=== PATIENT | female | born 1995 | race Caucasian/White ===

== ENCOUNTER 2017-03-07 19:49 | Emergency (ER) | payer BC ==
[2012-12-19 07:04] VITALS: BMI 32.1
== END 2017-03-07 21:10 | disposition home or self-care (01) ==
LOC: D.ER 19:49
DX: S69.91XA Unspecified injury of right wrist, hand and finger(s), initial encounter (principal); W22.8XXA Striking against or struck by other objects, initial encounter; Y93.89 Activity, other specified; Y92.89 Other specified places as the place of occurrence of the external cause; M25.40 Effusion, unspecified joint; M79.641 Pain in right hand; K21.9 Gastro-esophageal reflux disease without esophagitis; F90.9 Attention-deficit hyperactivity disorder, unspecified type

== ENCOUNTER 2017-07-22 09:07 | Emergency (ER) | payer BC | END 2017-07-22 11:25 | disposition home or self-care (01) | LOC: D.ER 09:07 | DX: J20.9 Acute bronchitis, unspecified (principal); K21.9 Gastro-esophageal reflux disease without esophagitis; F90.9 Attention-deficit hyperactivity disorder, unspecified type; F17.200 Nicotine dependence, unspecified, uncomplicated ==

== ENCOUNTER 2017-12-23 08:52 | Emergency (ER) | payer MEDICAID ==
[2012-12-19 07:04] VITALS: BMI 32.1
== END 2017-12-23 11:19 | disposition home or self-care (01) ==
LOC: D.ER 08:52
DX: H66.91 Otitis media, unspecified, right ear (principal); J11.1 Influenza due to unidentified influenza virus with other respiratory manifestations; R50.9 Fever, unspecified; J02.9 Acute pharyngitis, unspecified; H92.01 Otalgia, right ear; M79.1 Myalgia; F17.200 Nicotine dependence, unspecified, uncomplicated

== ENCOUNTER 2018-04-07 12:09 | Emergency (ER) | payer MEDICAID ==
[~2018-04-07] VITALS: Ht 162.6 cm; Wt 90.9 kg
[2018-04-07 12:12] VITALS: Ht 162.6 cm; Wt 90.9 kg
[2018-04-07 12:51] LABS: BASOPHILS 0.2 % (0-2); EOSINOPHILS 1.4 % (0-7); HEMATOCRIT 36.8 % (36.0-48.0); HEMOGLOBIN 12.9 g/dL (12-16); IMMATURE GRANULOCYTES 0.2 % (0-5); LYMPHOCYTES 37.1 % (15-50); MCH 31.2 pg (26.0-34.0); MCHC 35.1 g/dL (31.0-37.0); MCV 89.1 fL (80.0-100.0); MONOCYTES 5.5 % (2-11); NEUTROPHILS 55.6 % (40-80); PLATELET COUNT 201 10x3/uL (130-400); RBC 4.13 10x6/uL (4.00-5.40); RDW 12.6 % (11.5-14.5); WBC 5.8 10x3/uL (4.8-10.8)
[2018-04-07 13:03] LABS: APPEARANCE HAZY (CLEAR); BILIRUBIN NEGATIVE (NEGATIVE); COLOR YELLOW (YELLOW); GLUCOSE NEGATIVE (NEGATIVE); KETONE NEGATIVE (NEGATIVE); NITRITE NEGATIVE (NEGATIVE); PROTEIN NEGATIVE (NEGATIVE); SPECIFIC GRAVITY 1.005 (1.005-1.020); UROBILINOGEN NORMAL (NORMAL)
[2018-04-07 13:04] LABS: RED CELLS - URINE 0-5 /hpf (0-5)
[2018-04-07 13:05] LABS: AMORPHOUS SEDIMENT <1+ /lpf (NONE SEEN); BACTERIA MODERATE /hpf (NONE SEEN); EPITHELIAL CELLS 0-5 /hpf (0-5)
[2018-04-07 13:14] LABS: ALBUMIN 3.6 g/dL (3.4-5.0); ALKALINE PHOSPHATASE 67 U/L (46-116); ALT (SGPT) 46 U/L (10-68); CALC OSMOLALITY 281 mosm/kg (275-300); CALCIUM 8.7 mg/dL (8.5-10.1); CARBON DIOXIDE 27.4 mmol/L (21.0-32.0); CHLORIDE - SERUM 106 mmol/L (98-107); CREATININE - SERUM 0.8 mg/dL (0.6-1.3); POTASSIUM - SERUM 3.6 mmol/L (3.5-5.1); PROTEIN - SERUM 6.7 g/dL (6.4-8.2); SODIUM 141 mmol/L (136-145); UREA NITROGEN 7 mg/dL (7-18); eGFR NON AFRICAN AMERICAN > 90 mL/min (90-120)
[2018-04-07 13:18] LABS: GLUCOSE 148 mg/dL (74-106)
[2018-04-07 13:46] LABS: HCG - QUANTITATIVE (MATERNAL) 7178 mIU/mL
[2018-04-07] MEDS ORDERED: MACROBID100 MG PO ×2 (14:56→14:57)
[2018-04-07 15:35] LABS: HCG URINE POSITIVE (NEGATIVE)
[2018-04-07 15:43] VITALS: BP 128/80
== END 2018-04-07 15:42 | disposition home or self-care (01) ==
LOC: D.ER 12:09
PROVIDERS: Emergency Medicine
DX: O20.9 Hemorrhage in early pregnancy, unspecified (principal); Z3A.01 Less than 8 weeks gestation of pregnancy; N39.0 Urinary tract infection, site not specified; F17.200 Nicotine dependence, unspecified, uncomplicated; F12.90 Cannabis use, unspecified, uncomplicated

== ENCOUNTER 2018-04-22 13:05 | Emergency (ER) | payer MEDICAID ==
[~2018-04-22] VITALS: Ht 162.6 cm; Wt 96.8 kg
[~2018-04-22 13:05] MED LIST: MACROBID100 MG PO
[2018-04-22 13:38] VITALS: Ht 162.6 cm; Wt 96.8 kg
[2018-04-22 14:25] LABS: BASOPHILS 0.2 % (0-2); EOSINOPHILS 0.5 % (0-7); HEMOGLOBIN 13.9 g/dL (12-16); IMMATURE GRANULOCYTES 0.1 % (0-5); LYMPHOCYTES 32.1 % (15-50); MCH 31.2 pg (26.0-34.0); MCHC 35.6 g/dL (31.0-37.0); MCV 87.4 fL (80.0-100.0); MONOCYTES 5.6 % (2-11); NEUTROPHILS 61.5 % (40-80); RBC 4.46 10x6/uL (4.00-5.40); RDW 12.3 % (11.5-14.5); WBC 8.3 10x3/uL (4.8-10.8)
[2018-04-22 14:26] LABS: PLATELET COUNT 264 10x3/uL (130-400)
[2018-04-22 14:28] LABS: HCG SERUM POSITIVE (NEGATIVE)
[2018-04-22 14:36] LABS: APPEARANCE HAZY (CLEAR); COLOR RED/ORANGE (YELLOW); SPECIFIC GRAVITY 1.005 (1.005-1.020)
[2018-04-22 14:37] LABS: ALBUMIN 4.2 g/dL (3.4-5.0); ALKALINE PHOSPHATASE 70 U/L (46-116); ALT (SGPT) 51 U/L (10-68); BILIRUBIN - TOTAL 0.27 mg/dL (0.2-1.3); CALC OSMOLALITY 275 mosm/kg (275-300); CALCIUM 9.4 mg/dL (8.5-10.1); CARBON DIOXIDE 25.7 mmol/L (21.0-32.0); CHLORIDE - SERUM 102 mmol/L (98-107); CREATININE - SERUM 0.7 mg/dL (0.6-1.3); GLUCOSE 128 mg/dL (74-106); POTASSIUM - SERUM 3.7 mmol/L (3.5-5.1); PROTEIN - SERUM 7.8 g/dL (6.4-8.2); SODIUM 138 mmol/L (136-145); UREA NITROGEN 7 mg/dL (7-18); eGFR NON AFRICAN AMERICAN > 90 mL/min (90-120)
[2018-04-22 14:37] LABS: BACTERIA FEW /hpf (NONE SEEN); BILIRUBIN NEGATIVE (NEGATIVE); GLUCOSE NEGATIVE (NEGATIVE); KETONE NEGATIVE (NEGATIVE); NITRITE NEGATIVE (NEGATIVE); PROTEIN 1+ mg/dL (NEGATIVE); RED CELLS - URINE >50 /hpf (0-5); UROBILINOGEN NORMAL (NORMAL); WHITE CELLS - URINE OCC /hpf (0-5)
[2018-04-22 14:58] LABS: HCG - QUANTITATIVE (MATERNAL) 39053 mIU/mL
[2018-04-22 20:19] VITALS: BP 115/77
== END 2018-04-22 20:20 | disposition home or self-care (01) ==
LOC: D.ER 13:05
PROVIDERS: Emergency Medicine
DX: O20.0 Threatened abortion (principal); Z3A.09 9 weeks gestation of pregnancy

== ENCOUNTER 2019-03-04 14:02 | Emergency (ER) | payer SELFPAY ==
[~2019-03-04] VITALS: Ht 162.6 cm; Wt 106.8 kg
[2019-03-04 14:15] VITALS: Ht 162.6 cm; Wt 106.8 kg
[2019-03-04 14:48] LABS: BASOPHILS 0.3 % (0-2); EOSINOPHILS 1.1 % (0-7); HEMATOCRIT 40.9 % (36.0-48.0); HEMOGLOBIN 14.5 g/dL (12-16); IMMATURE GRANULOCYTES 0.3 % (0-5); LYMPHOCYTES 34.3 % (15-50); MCH 30.6 pg (26.0-34.0); MCHC 35.5 g/dL (31.0-37.0); MCV 86.3 fL (80.0-100.0); MEAN PLATELET VOLUME 9.9 fL (7.4-10.4); MONOCYTES 6.6 % (2-11); NEUTROPHILS 57.4 % (40-80); PLATELET COUNT 217 10x3/uL (130-400); RBC 4.74 10x6/uL (4.00-5.40); RDW 12.6 % (11.5-14.5)
[2019-03-04 15:10] LABS: ALBUMIN 3.6 g/dL (3.4-5.0); ALKALINE PHOSPHATASE 60 U/L (46-116); ALT (SGPT) 129 U/L (10-68); BILIRUBIN - TOTAL 0.33 mg/dL (0.2-1.3); CALC OSMOLALITY 275 mosm/kg (275-300); CALCIUM 8.5 mg/dL (8.5-10.1); CARBON DIOXIDE 24.8 mmol/L (21.0-32.0); CHLORIDE - SERUM 103 mmol/L (98-107); CREATININE - SERUM 0.7 mg/dL (0.6-1.3); GLUCOSE 122 mg/dL (74-106); POTASSIUM - SERUM 3.9 mmol/L (3.5-5.1); PROTEIN - SERUM 6.8 g/dL (6.4-8.2); SODIUM 138 mmol/L (136-145); UREA NITROGEN 10 mg/dL (7-18); eGFR NON AFRICAN AMERICAN > 90 mL/min (90-120)
[2019-03-04 15:15] LABS: APPEARANCE HAZY (CLEAR); BILIRUBIN NEGATIVE (NEGATIVE); COLOR YELLOW (YELLOW); GLUCOSE NEGATIVE (NEGATIVE); KETONE NEGATIVE (NEGATIVE); NITRITE NEGATIVE (NEGATIVE); PROTEIN NEGATIVE (NEGATIVE); UROBILINOGEN NORMAL (NORMAL)
[2019-03-04 15:25] LABS: HCG - QUANTITATIVE (MATERNAL) 0 mIU/mL
[2019-03-04] MEDS ORDERED: CARAFATE1 G PO (20:59)
[2019-03-04] MEDS ORDERED: OMEPRAZOLE40 MG PO (20:59)
[2019-03-04 21:20] VITALS: BP 135/65
== END 2019-03-04 21:21 | disposition home or self-care (01) ==
LOC: D.ER 14:02
PROVIDERS: Emergency Medicine
DX: R10.30 Lower abdominal pain, unspecified (principal); K76.0 Fatty (change of) liver, not elsewhere classified

== ENCOUNTER 2019-06-29 07:14 | Emergency (ER) | payer MEDICAID ==
[~2019-06-29] VITALS: Ht 162.6 cm; Wt 104.5 kg
[~2019-06-29 07:14] MED LIST changes: +CARAFATE1 G PO; +OMEPRAZOLE40 MG PO
[2019-06-29 07:19] VITALS: Ht 162.6 cm; Wt 104.5 kg
[2019-06-29] MEDS ORDERED: PHENERGAN25 M1 PO (07:38)
[2019-06-29 07:53] LABS: BASOPHILS 0.1 % (0-2); HEMATOCRIT 37.6 % (36.0-48.0); HEMOGLOBIN 13.4 g/dL (12-16); IMMATURE GRANULOCYTES 0.1 % (0-5); LYMPHOCYTES 28.5 % (15-50); MCH 30.6 pg (26.0-34.0); MCHC 35.6 g/dL (31.0-37.0); MCV 85.8 fL (80.0-100.0); MEAN PLATELET VOLUME 9.3 fL (7.4-10.4); MONOCYTES 5.9 % (2-11); NEUTROPHILS 64.4 % (40-80); PLATELET COUNT 193 10x3/uL (130-400); RBC 4.38 10x6/uL (4.00-5.40); RDW 11.9 % (11.5-14.5); WBC 7.2 10x3/uL (4.8-10.8)
[2019-06-29 08:09] LABS: ALBUMIN 3.5 g/dL (3.4-5.0); ALKALINE PHOSPHATASE 60 U/L (46-116); ALT (SGPT) 85 U/L (10-68); AMYLASE - SERUM 40 U/L (25-115); BILIRUBIN - TOTAL 0.26 mg/dL (0.2-1.3); CALC OSMOLALITY 285 mosm/kg (275-300); CALCIUM 8.7 mg/dL (8.5-10.1); CARBON DIOXIDE 28.9 mmol/L (21.0-32.0); CHLORIDE - SERUM 106 mmol/L (98-107); CREATININE - SERUM 0.8 mg/dL (0.6-1.3); GLUCOSE 154 mg/dL (74-106); LIPASE 156 U/L (73-393); POTASSIUM - SERUM 3.9 mmol/L (3.5-5.1); PROTEIN - SERUM 6.5 g/dL (6.4-8.2); SODIUM 142 mmol/L (136-145); UREA NITROGEN 12 mg/dL (7-18); eGFR NON AFRICAN AMERICAN > 90 mL/min (90-120)
[2019-06-29 08:18] LABS: APPEARANCE CLEAR (CLEAR); BILIRUBIN NEGATIVE (NEGATIVE); COLOR STRAW (YELLOW); GLUCOSE NEGATIVE (NEGATIVE); KETONE NEGATIVE (NEGATIVE); NITRITE NEGATIVE (NEGATIVE); PROTEIN NEGATIVE (NEGATIVE); UROBILINOGEN NORMAL (NORMAL)
[2019-06-29 08:19] LABS: BACTERIA FEW /hpf (NONE SEEN); EPITHELIAL CELLS 0-5 /hpf (0-5); RED CELLS - URINE 0-5 /hpf (0-5); WHITE CELLS - URINE NSEEN /hpf (0-5)
[2019-06-29 08:20] LABS: HCG SERUM NEGATIVE (NEGATIVE)
[2019-06-29] MEDS ORDERED: IMODIUM2 MG PO (11:04)
[2019-06-29 11:36] VITALS: BP 112/68
== END 2019-06-29 11:30 | disposition home or self-care (01) ==
LOC: D.ER 07:14
PROVIDERS: Emergency Medicine
DX: K52.9 Noninfective gastroenteritis and colitis, unspecified (principal)

== ENCOUNTER → 2020-04-25 15:56 | Outpatient (CLI) | payer OTHER ==
[2019-06-29 07:19] VITALS: BMI 39.5
[~2020-04-25 15:56] MED LIST changes: +IMODIUM2 MG PO; +PHENERGAN25 M1 PO
== END | disposition home or self-care (01) ==
LOC: D.RAD 15:22
PROVIDERS: ATTEND Nurse Practitioner
DX: R05 Cough (principal)